=== PATIENT | female | born 1970 | race Two or more races ===

== ENCOUNTER 2023-06-22 16:13 | Emergency (ER) | payer SELFPAY ==
[~2023-06-22] VITALS: Ht 152.4 cm; Wt 72.6 kg
[2023-06-22 17:25] VITALS: TEMP 98.1
[2023-06-22] MEDS ORDERED: PANT40TA49 PO ×2 (17:40→18:15)
[2023-06-22 18:25] VITALS: BP 136/59; O2SAT 98
== END 2023-06-22 18:21 | disposition home or self-care (01) ==
LOC: ER 16:26
DX: K29.70 Gastritis, unspecified, without bleeding (principal)